=== PATIENT | female | born 1985 | race African-American/Black ===

== ENCOUNTER → 2016-09-18 | Outpatient (CLI) | payer MEDICARE, MEDICAID | LOC: MW.CHIM 08:00 | CPT/HCPCS: 99214 ==

== ENCOUNTER → 2016-10-18 | Outpatient (CLI) | payer MEDICAID, MEDICARE | LOC: MW.CHFP 11:15 | PROVIDERS: ATTEND Nurse Practitioner Family | DX: R19.7 Diarrhea, unspecified (principal); R35.0 Frequency of micturition; Z86.2 Personal history of diseases of the blood and blood-forming organs and certain disorders involving the immune mechanism; D64.9 Anemia, unspecified | CPT/HCPCS: 36415; 81001; 85025; G0463 ==

== ENCOUNTER 2016-11-04 22:18 | Emergency (ER) | payer MEDICAID, MEDICARE ==
[2016-11-04] MEDS ORDERED: Sodium Chloride 0.9% 2.5 ML Syringe FLUSH PRN (22:45)
[2016-11-04] MEDS ORDERED: Sodium Chloride 0.9% 10 ML Syringe FLUSH PRN (22:45)
[2016-11-04] MEDS ORDERED: Ketorolac 30 MG/ML SDV IVPUSH ONE (22:45)
--- NOTE | 2016-11-04 22:47 | EDM.PDOC ---
ED HPI GENERAL MEDICAL PROBLEM - General Chief Complaint: General Stated Complaint: PAIN RT RIBCAGE/CHEST AREA Time Seen by Provider: 11/04/16 22:38 - History of Present Illness INITIAL COMMENTS - FREE TEXT/NARRATIVE: HISTORY AND PHYSICAL: History of present illness: The patient is a healthy 31-year-old female who presents with complaints of pain to her lateral right rib cage less chest wall abdomen area that's been ongoing for 3 days. She denies any trauma to the area and has had no fever chills cough runny nose sore throat anterior abdominal pain vomiting or diarrhea and has no urinary complaints. SHe describes the pain as deep and sitting at the ribs and underneath it and nothing makes it better or worse. She does state that when she moves her right upper extremity it seems to intensify but there is no association with food. The pain started gradually and she has tried [id number] Tylenol only and it has not worked. She denies any leg pain or swelling in the leg asymmetry and has a history of a bilateral tubal ligation. The patient has a history of hypertension hypercholesterolemia and follows in our clinic. Review of systems: As per history of present illness and below otherwise all systems reviewed and negative. Past medical history: As per history of present illness and as reviewed below otherwise noncontributory. Surgical history: As per history of present illness and as reviewed below otherwise noncontributory. Social history: No reported history of drug or alcohol abuse. Family history: As per history of present illness and as reviewed below otherwise noncontributory. Physical exam: General: Well-developed well-nourished female who is nontoxic and moves slowly in the ED vital signs have been reviewed by me. HEENT: Atraumatic, normocephalic, pupils reactive, negative for conjunctival pallor or scleral icterus, mucous membranes moist, throat clear, neck supple, nontender, trachea midline. Lungs: Clear to auscultation, breath sounds equal bilaterally, chest widely tender with palpation of the lateral lower right rib cage area without crepitus or deformity and there is no soft tissue visible injury seen. As no work or breathing or sensory muscle use no wheezing and no stridor. Heart: S1S2, regular, negative for clicks, rubs, or JVD. Abdomen: Soft, nondistended, mild tenderness at deep palpation of the right upper abdominal area underneath the ribs without rebound or guarding Negative for masses or hepatosplenomegaly. Negative for costovertebral tenderness. Pelvis: Stable nontender. Genitourinary: Deferred. Rectal: Deferred. Extremities: Atraumatic, negative for cords or calf pain. Neurovascular unremarkable. No leg pain or asymmetry Neuro: Awake, alert, oriented. Cranial nerves II through XII unremarkable. Cerebellum unremarkable. Motor and sensory unremarkable throughout. Exam nonfocal. Diagnostics: CBC CMP amylase lipase UA chest x-ray d-dimer CT scan of the abdomen and pelvis Therapeutics: Toradol The patient is aware of all testing results and care plan for discharge home. I will send her home with some Ultram and advised [id number] Tylenol Motrin use and recommended she followup in the clinic for further care and evaluation. She says she still has the discomfort but it is somewhat better. Impression: Right flank pain etiology unclear stable Definitive disposition and diagnosis as appropriate pending reevaluation and review of above. right side ribs Pain Score (Numeric/FACES): 10 - Related Data Allergies Allergy/AdvReac Type Severity Reaction Status Date / Time No Known Allergies Allergy Verified 11/04/16 22:29 Home Meds: Home Meds Aspirin 81 mg PO BRK 08/15/16 [History] Carvedilol 6.25 mg PO BID 08/15/16 [History] Dexlansoprazole [Dexilant] 30 mg PO DAILY 08/15/16 [History] Rosuvastatin [Crestor] 10 mg PO BEDTIME 08/15/16 [History] Past Medical History HEENT History: Reports: None Cardiovascular History: Reports: Hypertension, NM, Stents Other Cardiovascular History: mar NM Respiratory History: Reports: Asthma Gastrointestinal History: Reports: Chronic constipation 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 ED EXAM, GENERAL - Physical Exam Exam: See Below (See dictation) Course - Vital Signs Last Recorded V/S: Last Vital Signs Temp 37.3 C 11/04/16 22:32 Pulse 89 11/04/16 22:32 Resp 16 11/04/16 22:32 BP 137/66 04/15/17 22:32 Pulse Ox 97 11/04/16 22:32 - Orders/Labs/Meds Orders: Active Orders 24 hr Category Date Time Status Abdomen Pelvis wo Cont [CT] Stat Exams 11/04/16 22:45 Taken Chest 2V [CR] Stat Exams 11/04/16 22:45 Taken Sodium Chloride 0.9% [Saline Flush] Med 11/04/16 22:45 Active 10 ml FLUSH ASDIRECTED PRN Sodium Chloride 0.9% [Saline Flush] Med 11/04/16 22:45 Active 2.5 ml FLUSH ASDIRECTED PRN Saline Lock Insert [OM.PC] Stat Oth 11/04/16 22:44 Ordered Medication Orders Sodium Chloride (Saline Flush) 10 ml FLUSH ASDIRECTED PRN PRN Reason: Keep Vein Open Sodium Chloride (Saline Flush) 2.5 ml FLUSH ASDIRECTED PRN PRN Reason: Keep Vein Open Labs: Laboratory Tests 11/04/16 11/04/16 11/04/16 Range/Units 22:58 22:58 22:58 WBC 8.78 (4.0-11.0) K/uL RBC 4.29 L (4.30-5.90) M/uL Hgb 10.6 L (12.0-16.0) g/dL Hct 33.6 L (36.0-46.0) % MCV 78.3 L (80.0-98.0) fL MCH 24.7 L (27.0-32.0) pg MCHC 31.5 (31.0-37.0) g/dL RDW Std Deviation 45.8 (28.0-62.0) fl RDW Coeff of Alberto 16 H (11.0-15.0) % Plt Count 322 (150-400) K/uL MPV 10.40 (7.40-12.00) fL Neut % (Auto) 70.4 (48.0-80.0) % Lymph % (Auto) 17.9 (16.0-40.0) % Steele % (Auto) 9.8 (0.0-15.0) % Eos % (Auto) 1.6 (0.0-7.0) % Baso % (Auto) 0.3 (0.0-1.5) % Neut # (Auto) 6.2 H (1.4-5.7) K/uL Lymph # (Auto) 1.6 (0.6-2.4) K/uL Steele # (Auto) 0.9 H (0.0-0.8) K/uL Eos # (Auto) 0.1 (0.0-0.7) K/uL Baso # (Auto) 0.0 (0.0-0.1) K/uL Nucleated RBC % 0.0 /100WBC Nucleated RBCs # 0 K/uL D-Dimer, Quantitative 0.42 (0.0-0.52) mg/LFEU Sodium 140 (136-146) mmol/L Potassium 3.4 L (3.5-5.1) mmol/L Chloride 107 (98-110) mmol/L Carbon Dioxide 25 (21-31) mmol/L BUN 10 (6.0-23.0) mg/dL Creatinine 0.9 (0.6-1.5) mg/dL Est Cr Clr Drug Dosing TNP Estimated GFR (MDRD) > 60.0 ml/min Glucose 98 (60-110) mg/dL Calcium 9.1 (8.8-10.8) mg/dL Total Bilirubin 0.2 (0.1-1.5) mg/dL AST 12 (5-40) IU/L ALT 12 (8-54) IU/L Alkaline Phosphatase 51 (40-150) Total Protein 6.7 (6.0-8.0) g/dL Albumin 3.8 (3.5-5.0) g/dL Globulin 2.9 (2.0-3.5) g/dL Albumin/Globulin Ratio 1.3 (1.3-2.8) Amylase 57 (10-90) U/L Lipase 27 (7-80) U/L Urine Color Urine Appearance Urine pH (5.0-8.0) Ur Specific Aladdin (1.001-1.035) Urine Protein (NEGATIVE) mg/dL Urine Glucose (UA) (NEGATIVE) mg/dL Urine Ketones (NEGATIVE) mg/dL Urine Occult Blood (NEGATIVE) Urine Nitrite (NEGATIVE) Urine Bilirubin (NEGATIVE) Urine Urobilinogen (<2.0) EU/dL Ur Leukocyte Esterase (NEGATIVE) Urine RBC (0-2/HPF) Urine WBC (0-5/HPF) Ur Epithelial Cells (NONE-FEW) Urine Bacteria (NEGATIVE) Urine HCG, Qual (NEGATIVE) 11/04/16 11/04/16 Range/Units 23:10 23:10 WBC (4.0-11.0) K/uL RBC (4.30-5.90) M/uL Hgb (12.0-16.0) g/dL Hct (36.0-46.0) % MCV (80.0-98.0) fL MCH (27.0-32.0) pg MCHC (31.0-37.0) g/dL RDW Std Deviation (28.0-62.0) fl RDW Coeff of Alberto (11.0-15.0) % Plt Count (150-400) K/uL MPV (7.40-12.00) fL Neut % (Auto) (48.0-80.0) % Lymph % (Auto) (16.0-40.0) % Steele % (Auto) (0.0-15.0) % Eos % (Auto) (0.0-7.0) % Baso % (Auto) (0.0-1.5) % Neut # (Auto) (1.4-5.7) K/uL Lymph # (Auto) (0.6-2.4) K/uL Steele # (Auto) (0.0-0.8) K/uL Eos # (Auto) (0.0-0.7) K/uL Baso # (Auto) (0.0-0.1) K/uL Nucleated RBC % /100WBC Nucleated RBCs # K/uL D-Dimer, Quantitative (0.0-0.52) mg/LFEU Sodium (136-146) mmol/L Potassium (3.5-5.1) mmol/L Chloride (98-110) mmol/L Carbon Dioxide (21-31) mmol/L BUN (6.0-23.0) mg/dL Creatinine (0.6-1.5) mg/dL Est Cr Clr Drug Dosing Estimated GFR (MDRD) ml/min Glucose (60-110) mg/dL Calcium (8.8-10.8) mg/dL Total Bilirubin (0.1-1.5) mg/dL AST (5-40) IU/L ALT (8-54) IU/L Alkaline Phosphatase (40-150) Total Protein (6.0-8.0) g/dL Albumin (3.5-5.0) g/dL Globulin (2.0-3.5) g/dL Albumin/Globulin Ratio (1.3-2.8) Amylase (10-90) U/L Lipase (7-80) U/L Urine Color YELLOW Urine Appearance CLEAR Urine pH 7.0 (5.0-8.0) Ur Specific Aladdin 1.020 (1.001-1.035) Urine Protein NEGATIVE (NEGATIVE) mg/dL Urine Glucose (UA) NEGATIVE (NEGATIVE) mg/dL Urine Ketones NEGATIVE (NEGATIVE) mg/dL Urine Occult Blood NEGATIVE (NEGATIVE) Urine Nitrite NEGATIVE (NEGATIVE) Urine Bilirubin NEGATIVE (NEGATIVE) Urine Urobilinogen 4.0 H (<2.0) EU/dL Ur Leukocyte Esterase NEGATIVE (NEGATIVE) Urine RBC 1-2 (0-2/HPF) Urine WBC NONE SEEN (0-5/HPF) Ur Epithelial Cells RARE (NONE-FEW) Urine Bacteria RARE (NEGATIVE) Urine HCG, Qual NEGATIVE (NEGATIVE) Meds: Medications Generic Name Dose Route Start Last Admin Trade Name Freq PRN Reason Stop Dose Admin Sodium Chloride 10 ml 11/04/16 22:45 Saline Flush FLUSH ASDIRECTED PRN Keep Vein Open Sodium Chloride 2.5 ml 11/04/16 22:45 Saline Flush FLUSH ASDIRECTED PRN Keep Vein Open Discontinued Medications Generic Name Dose Route Start Last Admin Trade Name Freq PRN Reason Stop Dose Admin Ketorolac Tromethamine 30 mg 11/04/16 22:45 11/04/16 23:04 Toradol IVPUSH 11/04/16 22:46 30 mg ONETIME ONE Administration Departure - Departure Time of Disposition: 01:19 Disposition: Home, Self-Care 01 Condition: good Clinical Impression: Right flank pain Forms: ED Department Discharge Additional Instructions: The following information is given to patients seen in the emergency department who are being discharged to home. This information is to outline your options for follow-up care. We provide all patients seen in our emergency department with a follow-up referral. The need for follow-up, as well as the timing and circumstances, are variable depending upon the specifics of your emergency department visit. If you don't have a primary care physician on staff, we will provide you with a referral. We always advise you to contact your personal physician following an emergency department visit to inform them of the circumstance of the visit and for follow-up with them and/or the need for any referrals to a consulting specialist. The emergency department will also refer you to a specialist when appropriate. This referral assures that you have the opportunity for followup care with a specialist. All of these measure are taken in an effort to provide you with optimal care, which includes your followup. Under all circumstances we always encourage you to contact your private physician who remains a resource for coordinating your care. When calling for followup care, please make the office aware that this follow-up is from your recent emergency room visit. If for any reason you are refused follow-up, please contact the [facility] emergency department at and ask to speak to the emergency department charge nurse. [facility] Primary care- [place] [address] Push hydration and avoid caffeinated products as well as fast food any foods and junk foods. Please call and followup with your provider in the clinic and return to ER as needed and as discussed. Use [id number] Tylenol or ibuprofen for pain or use the stronger pain medications prescribed here tonight via [facility]--- Ultram - My Orders Last 24 Hours: My Active Orders 11/04/16 22:44 Saline Lock Insert [OM.PC] Stat 11/04/16 22:45 Abdomen Pelvis wo Cont [CT] Stat Chest 2V [CR] Stat Sodium Chloride 0.9% [Saline Flush] 10 ml FLUSH ASDIRECTED PRN Sodium Chloride 0.9% [Saline Flush] 2.5 ml FLUSH ASDIRECTED PRN - Assessment/Plan Last 24 Hours: My Active Orders 11/04/16 22:44 Saline Lock Insert [OM.PC] Stat 11/04/16 22:45 Abdomen Pelvis wo Cont [CT] Stat Chest 2V [CR] Stat Sodium Chloride 0.9% [Saline Flush] 10 ml FLUSH ASDIRECTED PRN Sodium Chloride 0.9% [Saline Flush] 2.5 ml FLUSH ASDIRECTED PRN
[2016-11-04 23:30] LABS: CHLORIDE,CL 107 mmol/L (98-110); SODIUM,NA 140 mmol/L (136-146)
[2016-11-05 01:50] VITALS: BP 117/69
--- NOTE | 2016-11-06 11:12 | CT ---
EXAM DATE: 11/04/16 PATIENT'S AGE: 31 Patient: NANI HEBERT Facility: [place], [place] Site . Site : 1985 Study: CT Abdomen/Pelvis [id number]/16/2017 12:27:47 AM Ordering Physician: Enedelia Rebollar Final Report: INDICATION: Flank pain right TECHNIQUE: CT abdomen and pelvis without i.v. contrast. Coronal and sagittal reformats were obtained. COMPARISON: None FINDINGS: Lower chest: There is a 3 mm nodule in the right middle lobe on image 2, too small to further characterize. Liver: Unremarkable. Spleen: Unremarkable. Pancreas: Unremarkable. Gallbladder and bile ducts: Unremarkable. Kidneys: Unremarkable. No kidney or ureteral stones and no hydronephrosis seen. Adrenal glands: Unremarkable. GI tract: There is a 3.2 cm duodenum diverticulum seen. Hyperdense material is seen within the left colon which may be due to previous administration of oral contrast. Moderate amount of stool is present throughout the colon which may be due to chronic constipation. The appendix is 6-7 mm in diameter with no surrounding inflammatory changes seen. Vascular: Unremarkable. Lymph nodes: Several small ileocolic lymph nodes are noted. Miscellaneous: Unremarkable. No pneumoperitoneum is seen. No significant ascites is noted. Pelvic Organs: Unremarkable. Bones: Unremarkable for age. IMPRESSION: 1. The appendix is at the upper limits of normal in size which is indeterminate by imaging. Dictated by Raul Up MD @ 11/05/2016 12:40:59 AM Dictated by: Raul Up MD @ 11/05/2016 00:41:05 (Electronic Signature) Report Signed by Proxy and Original Signed Document filed in the Medical Record. [facility]
--- NOTE | 2016-11-06 11:13 | CR ---
EXAM DATE: 11/04/16 PATIENT'S AGE: 31 Patient: NANI HEBERT Facility: [place], [place] Site . Site : 1985 Study: XRay Chest [id number]/16/2017 1:01:12 AM Ordering Physician: Enedelia Rebollar Final Report: INDICATION: pain, sob TECHNIQUE: Chest 2 views COMPARISON: None FINDINGS: Cardiovascular and mediastinum: Heart size and vasculature are normal in caliber and appearance. Mediastinum is within normal limits. Lungs and pleural spaces: No focal consolidation. Elevation of the right hemidiaphragm. No sign of pleural effusion. No pneumothorax. Bones and soft tissues: No significant findings. IMPRESSION: No acute cardiopulmonary disease. Dictated by Marcell Ellis MD @ 11/05/2016 1:09:10 AM Dictated by: Marcell Ellis MD @ 11/05/2016 01:09:20 (Electronic Signature) Report Signed by Proxy and Original Signed Document filed in the Medical Record. [facility]
== END 2016-11-05 01:40 | disposition home or self-care (01) ==
LOC: MW.ED 22:18
DX: R10.9 Unspecified abdominal pain (principal); I10 Essential (primary) hypertension; I25.2 Old myocardial infarction; J45.909 Unspecified asthma, uncomplicated; F41.9 Anxiety disorder, unspecified; Z79.82 Long term (current) use of aspirin; Z79.899 Other long term (current) drug therapy
CPT/HCPCS: 36415; 71020; 74176; 80053; 81001; 81025; 82150; 83690; 85025; 85379; 96374; 99284; J1885

== ENCOUNTER → 2016-11-09 | Outpatient (CLI) | payer MEDICAID, MEDICARE ==
[~2016-11-09] MED LIST: Gadobutrol 7.5 mMOL/7.5 ML SDV IVPUSH STA
--- NOTE | 2016-11-09 13:22 | MR ---
EXAMINATION: MRI of the brain with and without contrast. TECHNIQUE: Multiplanar and multisequence imaging of the brain without and following the administrati on of 7.5 mL of Gadavist. HISTORY: papilledema. FINDINGS: Cerebral hemispheres and the deep nuclei are without hemorrhage, mass, edema, gliosis, enhancement o r atrophy. No extraaxial collections or hemorrhage. No abnormal diffusion restriction. There is possible mild flattening of the posterior aspect of the globes. The ventricles are small bi laterally. The sella appears partially empty. Brainstem and cerebellum are without hemorrhage, mass, edema, gliosis, enhancement or atrophy. The carotid basilar artery flow voids are intact. The otomastoid airspaces are clear. No internal auditory canal or cerebellopontine angle masses or enhancement. The paranasal sinuses are clear. The globes, optic nerves, orbital apices, optic amy sm, optic tracts, and visual cortices are unremarkable. Pituitary and sella turcica are unremarkable. No meningeal enhancement. The craniocervical junctio n is unremarkable. No siderosis or evidence of vascular malformation. The calvarium is intact. IMPRESSION: 1. Narrow lateral ventricles and possible minimal flattening of the posterior aspect of the globes. This could suggest pseudotumor cerebri.
== END ==
LOC: MW.MRI 08:08
PROVIDERS: ATTEND Ophthalmology
DX: H47.10 Unspecified papilledema (principal)
CPT/HCPCS: 70553; A9585

== ENCOUNTER → 2016-11-16 | Outpatient (CLI) | payer MEDICAID, MEDICARE | LOC: MW.CHFP 08:00 | PROVIDERS: ATTEND Nurse Practitioner Family | DX: H47.10 Unspecified papilledema (principal); G93.2 Benign intracranial hypertension | CPT/HCPCS: G0463 ==

== ENCOUNTER → 2016-12-06 | Outpatient (CLI) | payer MEDICARE | LOC: MW.CHNEURO 08:00 | PROVIDERS: ATTEND Psychiatry & Neurology Neuromuscular Medicine | DX: R51 Headache (principal); H47.10 Unspecified papilledema | CPT/HCPCS: 99204 ==

== ENCOUNTER → 2016-12-08 | Outpatient (CLI) | payer BC, MEDICARE | LOC: MW.CHOBGYN 08:52 | PROVIDERS: ATTEND Nurse Practitioner Women's Health | DX: N76.4 Abscess of vulva (principal) | CPT/HCPCS: 56405; 87070; 87077; 87186; G0463 ==

== ENCOUNTER 2017-01-20 12:02 | Emergency (ER) | payer BC, MEDICARE ==
[2017-01-20] MEDS ORDERED: methylPREDNISolone Sodium Succinate 125 MG/2 ML SDV IVPUSH ONE (12:12)
[2017-01-20] MEDS ORDERED: Albuterol/Ipratropium 3.0-0.5 MG/3 ML Neb Soln NEB ONE (12:12)
--- NOTE | 2017-01-20 12:12 | EDM.PDOC ---
ED HPI GENERAL MEDICAL PROBLEM - General Chief Complaint: Respiratory Problem Stated Complaint: SOB Time Seen by Provider: 01/20/17 12:12 Source of Information: Reports: Patient - History of Present Illness INITIAL COMMENTS - FREE TEXT/NARRATIVE: HISTORY AND PHYSICAL: History of present illness: []Patient presents with shortness of breath and cough for 1 week, she presents to the emergency room if she develops chest pain associated with no association with diaphoresis no radiation to arm neck or jaw No fever nausea vomiting chills sweats headache dizziness or palpitation no bowel or urine symptoms Patient did receive a DuoNeb and Solu-Medrol with improvement of symptoms History of tubal ligation Review of systems: As per history of present illness and below otherwise all systems reviewed and negative. Past medical history: As per history of present illness and as reviewed below otherwise noncontributory. Surgical history: As per history of present illness and as reviewed below otherwise noncontributory. Social history: No reported history of drug or alcohol abuse. Family history: As per history of present illness and as reviewed below otherwise noncontributory. Physical exam: HEENT: Atraumatic, normocephalic, pupils reactive, negative for conjunctival pallor or scleral icterus, mucous membranes moist, throat clear, neck supple, nontender, trachea midline. Lungs: Clear to auscultation, breath sounds equal bilaterally, chest nontender. Heart: S1S2, regular, negative for clicks, rubs, or JVD. Abdomen: Soft, nondistended, nontender. Negative for masses or hepatosplenomegaly. Negative for costovertebral tenderness. Pelvis: Stable nontender. Genitourinary: Deferred. Rectal: Deferred. Extremities: Atraumatic, negative for cords or calf pain. Neurovascular unremarkable. Neuro: Awake, alert, oriented. Cranial nerves II through XII unremarkable. Cerebellum unremarkable. Motor and sensory unremarkable throughout. Exam nonfocal. Diagnostics: []Lab as below EKG Chest 1 view Therapeutics: []DuoNeb Solu-Medrol 125 mg IV Z-Steven 250 mg dosing Medrol Dosepak HFA Impression: []Short of breath resolved Acute bronchitis Definitive disposition and diagnosis as appropriate pending reevaluation and review of above. 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 ED EXAM, GENERAL - Physical Exam Exam: See Below Course - Vital Signs Last Recorded V/S: Last Vital Signs Temp 36.1 C 01/20/17 12:07 Pulse 95 01/20/17 12:07 Resp 19 01/20/17 12:07 BP 138/84 01/20/17 12:07 Pulse Ox 99 01/20/17 12:07 - Orders/Labs/Meds Orders: Active Orders 24 hr Category Date Time Status EKG Documentation Completion [RC] STAT Care 01/20/17 12:11 Active RT Aerosol Therapy [RC] ASDIRECTED Care 01/20/17 12:12 Active Chest 1V Frontal [CR] Stat Exams 01/20/17 12:11 Taken UA W/MICROSCOPIC [URIN] Stat Lab 01/20/17 13:05 Results Labs: Laboratory Tests 01/20/17 01/20/17 01/20/17 Range/Units 12:25 12:25 12:25 WBC 7.93 (4.0-11.0) K/uL RBC 5.36 (4.30-5.90) M/uL Hgb 12.7 (12.0-16.0) g/dL Hct 39.3 (36.0-46.0) % MCV 73.3 L (80.0-98.0) fL MCH 23.7 L (27.0-32.0) pg MCHC 32.3 (31.0-37.0) g/dL RDW Std Deviation 44.4 (28.0-62.0) fl RDW Coeff of Alberto 17 H (11.0-15.0) % Plt Count 367 (150-400) K/uL MPV 10.20 (7.40-12.00) fL Neut % (Auto) 66.8 (48.0-80.0) % Lymph % (Auto) 24.2 (16.0-40.0) % [place] % (Auto) 6.7 (0.0-15.0) % Eos % (Auto) 1.4 (0.0-7.0) % Baso % (Auto) 0.9 (0.0-1.5) % Neut # (Auto) 5.3 (1.4-5.7) K/uL Lymph # (Auto) 1.9 (0.6-2.4) K/uL [place] # (Auto) 0.5 (0.0-0.8) K/uL Eos # (Auto) 0.1 (0.0-0.7) K/uL Baso # (Auto) 0.1 (0.0-0.1) K/uL Nucleated RBC % 0.0 /100WBC Nucleated RBCs # 0 K/uL Sodium 137 (136-146) mmol/L Potassium 3.5 (3.5-5.1) mmol/L Chloride 111 H (98-110) mmol/L Carbon Dioxide 16 L (21-31) mmol/L BUN 14 (6.0-23.0) mg/dL Creatinine 1.0 (0.6-1.5) mg/dL Est Cr Clr Drug Dosing 76.31 mL/min Estimated GFR (MDRD) > 60.0 ml/min Glucose 86 (60-110) mg/dL Calcium 9.5 (8.8-10.8) mg/dL Total Bilirubin 0.6 (0.1-1.5) mg/dL AST 15 (5-40) IU/L ALT 16 (8-54) IU/L Alkaline Phosphatase 59 (40-150) Troponin I < 0.10 (0.0-0.29) NG/ML Total Protein 8.1 H (6.0-8.0) g/dL Albumin 4.5 (3.5-5.0) g/dL Globulin 3.6 H (2.0-3.5) g/dL Albumin/Globulin Ratio 1.3 (1.3-2.8) Urine Color Urine Appearance Urine pH (5.0-8.0) Ur Specific Lohn (1.001-1.035) Urine Protein (NEGATIVE) mg/dL Urine Glucose (UA) (NEGATIVE) mg/dL Urine Ketones (NEGATIVE) mg/dL Urine Occult Blood (NEGATIVE) Urine Nitrite (NEGATIVE) Urine Bilirubin (NEGATIVE) Urine Urobilinogen (<2.0) EU/dL Ur Leukocyte Esterase (NEGATIVE) 01/20/17 Range/Units 13:05 WBC (4.0-11.0) K/uL RBC (4.30-5.90) M/uL Hgb (12.0-16.0) g/dL Hct (36.0-46.0) % MCV (80.0-98.0) fL MCH (27.0-32.0) pg MCHC (31.0-37.0) g/dL RDW Std Deviation (28.0-62.0) fl RDW Coeff of Alberto (11.0-15.0) % Plt Count (150-400) K/uL MPV (7.40-12.00) fL Neut % (Auto) (48.0-80.0) % Lymph % (Auto) (16.0-40.0) % [place] % (Auto) (0.0-15.0) % Eos % (Auto) (0.0-7.0) % Baso % (Auto) (0.0-1.5) % Neut # (Auto) (1.4-5.7) K/uL Lymph # (Auto) (0.6-2.4) K/uL [place] # (Auto) (0.0-0.8) K/uL Eos # (Auto) (0.0-0.7) K/uL Baso # (Auto) (0.0-0.1) K/uL Nucleated RBC % /100WBC Nucleated RBCs # K/uL Sodium (136-146) mmol/L Potassium (3.5-5.1) mmol/L Chloride (98-110) mmol/L Carbon Dioxide (21-31) mmol/L BUN (6.0-23.0) mg/dL Creatinine (0.6-1.5) mg/dL Est Cr Clr Drug Dosing mL/min Estimated GFR (MDRD) ml/min Glucose (60-110) mg/dL Calcium (8.8-10.8) mg/dL Total Bilirubin (0.1-1.5) mg/dL AST (5-40) IU/L ALT (8-54) IU/L Alkaline Phosphatase (40-150) Troponin I (0.0-0.29) NG/ML Total Protein (6.0-8.0) g/dL Albumin (3.5-5.0) g/dL Globulin (2.0-3.5) g/dL Albumin/Globulin Ratio (1.3-2.8) Urine Color YELLOW Urine Appearance CLEAR Urine pH 5.5 (5.0-8.0) Ur Specific Lohn >= 1.030 (1.001-1.035) Urine Protein NEGATIVE (NEGATIVE) mg/dL Urine Glucose (UA) NEGATIVE (NEGATIVE) mg/dL Urine Ketones NEGATIVE (NEGATIVE) mg/dL Urine Occult Blood MODERATE (NEGATIVE) Urine Nitrite NEGATIVE (NEGATIVE) Urine Bilirubin NEGATIVE (NEGATIVE) Urine Urobilinogen 0.2 (<2.0) EU/dL Ur Leukocyte Esterase NEGATIVE (NEGATIVE) Meds: Medications Discontinued Medications Generic Name Dose Route Start Last Admin Trade Name Su PRN Reason Stop Dose Admin Albuterol/Ipratropium 3 ml 01/20/17 12:12 01/20/17 12:24 Duoneb 3.0-0.5 Mg/3 Ml NEB 01/20/17 12:13 3 ml ONETIME ONE Administration Methylprednisolone Sodium Succinate 125 mg 01/20/17 12:12 01/20/17 12:33 Solu-Medrol IVPUSH 01/20/17 12:13 125 mg ONETIME ONE Administration Departure - Departure Time of Disposition: 13:22 Disposition: Home, Self-Care 01 Condition: Good Clinical Impression: Acute bronchitis - Discharge Information Forms: ED Department Discharge Additional Instructions: Medication as prescribed Return if symptoms persist or worsen Follow-up with primary care in 2 weeks [facility] [address] [place] [id number] The following information is given to patients seen in the emergency department who are being discharged to home. This information is to outline your options for follow-up care. We provide all patients seen in our emergency department with a follow-up referral. The need for follow-up, as well as the timing and circumstances, are variable depending upon the specifics of your emergency department visit. If you don't have a primary care physician on staff, we will provide you with a referral. We always advise you to contact your personal physician following an emergency department visit to inform them of the circumstance of the visit and for follow-up with them and/or the need for any referrals to a consulting specialist. The emergency department will also refer you to a specialist when appropriate. This referral assures that you have the opportunity for follow-up care with a specialist. All of these measure are taken in an effort to provide you with optimal care, which includes your follow-up. Under all circumstances we always encourage you to contact your private physician who remains a resource for coordinating your care. When calling for follow-up care, please make the office aware that this follow-up is from your recent emergency room visit. If for any reason you are refused follow-up, please contact the [facility] emergency department at and asked to speak to the emergency department charge nurse. - My Orders Last 24 Hours: My Active Orders 01/20/17 12:11 EKG Documentation Completion [RC] STAT Chest 1V Frontal [CR] Stat 01/20/17 12:12 RT Aerosol Therapy [RC] ASDIRECTED 01/20/17 13:05 UA W/MICROSCOPIC [URIN] Stat - Assessment/Plan Last 24 Hours: My Active Orders 01/20/17 12:11 EKG Documentation Completion [RC] STAT Chest 1V Frontal [CR] Stat 01/20/17 12:12 RT Aerosol Therapy [RC] ASDIRECTED 01/20/17 13:05 UA W/MICROSCOPIC [URIN] Stat
[2017-01-20 12:53] LABS: CHLORIDE,CL 111 mmol/L (98-110); SODIUM,NA 137 mmol/L (136-146)
[2017-01-20 13:32] VITALS: BP 123/93
--- NOTE | 2017-01-22 14:35 | CR ---
EXAM DATE: 01/20/17 PATIENT'S AGE: 31 Patient: NANI HEBERT Facility: [place], [place] Site . Site : 1985 Study: XRay Chest [id number]/1/2017 12:44:50 PM Ordering Physician: Doctor Sparks Final Report: HISTORY: Chest pain. Technique: Portable AP upright chest. Comparison: 11/05/2016. Findings: The heart size, mediastinum, and pulmonary veins are within normal limits. The lungs are free of infiltrate. There is no effusion. There is mild elevation of the right hemidiaphragm which is unchanged since 11/05/2016. Impression: No acute disease. Dictated by Richard Perez MD @ Jan 20 2017 1:07PM (Electronic Signature) Report Signed by Proxy. JORI
== END 2017-01-20 13:33 | disposition home or self-care (01) ==
LOC: MW.ED 12:02
DX: J20.9 Acute bronchitis, unspecified (principal); I10 Essential (primary) hypertension; I25.2 Old myocardial infarction; F41.9 Anxiety disorder, unspecified; J45.909 Unspecified asthma, uncomplicated; Z79.82 Long term (current) use of aspirin; Z79.899 Other long term (current) drug therapy
CPT/HCPCS: 36415; 71010; 80053; 81001; 84484; 85025; 93005; 94664; 96374; 99285; J2930; 99282